=== PATIENT | male | born 1945 | race Caucasian/White ===

== ENCOUNTER 2024-07-30 10:26 | Outpatient (CLI) | payer MEDICARE, SELFPAY | END 2024-07-30 10:27 | disposition home or self-care (01) | LOC: WOUND 10:27 | PROVIDERS: PCP Family Medicine; Visit Provider Nurse Practitioner Family | DX: L89.323 Pressure ulcer of left buttock, stage 3 (principal); G12.21 Amyotrophic lateral sclerosis; G11.4 Hereditary spastic paraplegia; Z99.3 Dependence on wheelchair | CPT/HCPCS: 97597; G0463 ==

== ENCOUNTER 2024-08-06 12:58 | Outpatient (CLI) | payer MEDICARE, SELFPAY | END 2024-08-06 12:59 | disposition home or self-care (01) | LOC: WOUND 12:58 | PROVIDERS: PCP Family Medicine; Visit Provider Nurse Practitioner Family | DX: L89.323 Pressure ulcer of left buttock, stage 3 (principal); G12.21 Amyotrophic lateral sclerosis; G11.4 Hereditary spastic paraplegia; Z99.3 Dependence on wheelchair | CPT/HCPCS: G0463 ==

== ENCOUNTER 2024-08-20 12:52 | Outpatient (CLI) | payer MEDICARE, SELFPAY | END 2024-08-20 12:53 | disposition home or self-care (01) | LOC: WOUND 12:52 | PROVIDERS: PCP Family Medicine; Visit Provider Nurse Practitioner Family | DX: L89.323 Pressure ulcer of left buttock, stage 3 (principal); G12.21 Amyotrophic lateral sclerosis; G11.4 Hereditary spastic paraplegia; Z99.3 Dependence on wheelchair | CPT/HCPCS: G0463 ==

== ENCOUNTER 2024-09-03 12:55 | Outpatient (CLI) | payer MEDICARE, SELFPAY | END 2024-09-03 12:56 | disposition home or self-care (01) | LOC: WOUND 12:55 | PROVIDERS: PCP Family Medicine; Visit Provider Nurse Practitioner Family | DX: G11.4 Hereditary spastic paraplegia (principal); G12.21 Amyotrophic lateral sclerosis; Z87.2 Personal history of diseases of the skin and subcutaneous tissue; Z99.3 Dependence on wheelchair | CPT/HCPCS: G0463 ==